=== PATIENT | female | born 1945 | race Caucasian/White ===

== ENCOUNTER → 2017-12-21 | Outpatient (CLI) | payer OTHER ==
[~2017-12-21] MED LIST: ASPIRIN325 PO; CELEBREX 200 M200 M1 PO; COLON HEALTH; HYDROCODON-ACE1 EAC7; MUCINEX TA600 MG/TA2; NOHOMEMEDICATIONS; NORVASC5 MG PO; PHENERGAN 25 MG25 M1 PO; THERA-M CAPLET1 EACH PO; TRAMADOL 50 MG50 MG PO; ZANTAC 150MG T150 MG PO
[2017-12-21 09:31] LABS: CREATININE 0.9 mg/dL (0.6-1.0)
== END ==
LOC: CAT 06:38
PROVIDERS: Specialist
DX: K57.92 Diverticulitis of intestine, part unspecified, without perforation or abscess without bleeding (principal); Z88.0 Allergy status to penicillin; Z88.2 Allergy status to sulfonamides

== ENCOUNTER 2020-06-23 13:28 | Emergency (ER) | payer OTHER ==
[~2020-06-23] VITALS: Ht 170.2 cm; Wt 61.7 kg
[2020-06-23 14:56] LABS: ABSOLUTE NEUTROPHILS 3.4 thou/uL (1.4-8.2); BASOPHILS 0.9 % (0.0-2.0); EOSINOPHILS 2.8 % (0.0-3.0); HEMATOCRIT 37.1 % (37.0-47.0); HEMOGLOBIN 12.3 gm/dL (12.0-15.0); LYMPHOCYTES 26.4 % (24.0-44.0); MCHC 33.1 g/dL (28.0-37.0); MCV 90.7 fL (80.0-100.0); MONOCYTES 10.6 % (1.0-8.0); PLATELET COUNT 277 thou/uL (150-400); POLYS 59.3 % (36.0-66.0); RBC 4.09 mil/uL (4.20-5.00); RDW 13.7 % (10.5-14.5); WBC 5.7 thou/uL (4.0-11.0)
[2020-06-23 15:13] LABS: ANION GAP 7 mmol/L (7-16); BUN 12 mg/dL (7-18); CALCIUM 9.7 mg/dL (8.5-10.1); CHLORIDE 104 mmol/L (98-107); CO2 31 mmol/L (21-32); CREATININE 0.8 mg/dL (0.6-1.0); GLUCOSE 97 mg/dL (74-106); POTASSIUM 3.8 mmol/L (3.5-5.1); SODIUM 142 mmol/L (136-145)
[2020-06-23 15:21] LABS: TROPONIN-I <0.06 ng/mL (<0.06)
--- NOTE | 2020-06-23 15:37 | EKG ---
[facility] [place] [address] ELECTROCARDIOGRAM REPORT Name: ZAMZAM FRANCIS Room #: REG [facility]#: [id number] Admission: 06/23/20 Attend Phys: Discharge: Date of : 43 Report #: [id number] THIS REPORT FOR: cc: Timothy Nichole MD, Steven E. MD Santiago, Patrick MD 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
[2020-06-23 17:25] VITALS: BP 135/64
== END 2020-06-23 17:26 | disposition home or self-care (01) ==
LOC: ER 13:28
PROVIDERS: Emergency Medicine
DX: U07.1 COVID-19 (principal); R06.09 Other forms of dyspnea; R00.2 Palpitations; Z90.710 Acquired absence of both cervix and uterus; Z79.899 Other long term (current) drug therapy; Z88.0 Allergy status to penicillin; Z88.5 Allergy status to narcotic agent; Z88.8 Allergy status to other drugs, medicaments and biological substances; Z88.2 Allergy status to sulfonamides

== ENCOUNTER 2020-06-26 22:48 | Inpatient (IN) | payer OTHER ==
[~2020-06-26] VITALS: Ht 170.2 cm; Wt 61.7 kg
--- NOTE | ~2020-06-26 | EMS ---
[address] [address] EMS Patient Care Report Name: ZAMZAM FRANCIS Room #: REG CHANI Orr#: [id number] Admission: 06/26/20 Attend Phys: Discharge: Date of : 43 Report #: [id number] THIS REPORT FOR: //name// Report Transmitted: 06/26/2020 22:35 EMS Care Summary [facility] Incident [id number] @ 06/26/2020 22:08 Incident Location [address] [place] [address] Patient ZAMZAM FRANCIS Female, 75 Years 1945 Patient Address [address] [place] [address] Patient History Diverticulitis,Anxiety,Palpitations, Patient Allergies Penicillin allergy, Patient Medications Aspirin, Pregnyl, Chief Complaint Rectal Bleeding Disposition Transported No Lights/Salol Dispatch Reason Abdominal Pain/Problems Transported To [facility] Medic 1 dispatched to the residence of a 75 year old female pt with a chief complaint of rectal bleeding. Upon arrival crew was greeted at door by pt. Pt presented with a patent airway and warm dry skin. Pt stated that she had 3 bloody stools in the last 30 minutes. Pt denied abd pain. Pt denied a hx of [address] [address] EMS Patient Care Report Name: ZAMZAM FRANCIS Room #: REG CHANI Orr#: [id number] Admission: 06/26/20 Attend Phys: Discharge: Date of : 43 Report #: [id number] rectal bleeding. Pt reported that she had tested positive for COVID 19 on 06/23/2020 but was not currently experiencing symptoms. Pt was placed on stretcher by crew and secured using straps. Pt stated that she was seen at the ED a few days prior for heart palpitations. Pt stated that she had initially been dx with COVID 19 over 30 days ago but retested on the and still tested positive. Pt stated that the stools she had were loose and bright red. Pt denied nausea and vomiting. Pt denied SOA or cough. Pt stated she felt generally weak. Pt was transported to [facility] without incident and care was transferred to ED staff. Initial Vitals @22:22P: 64,BP: 162/73,Pain: 0/10,GCS: 15,SpO2: 98, @22:30P: 86,BP: 163/73,Pain: 0/10,GCS: 15,SpO2: 99, Assessments @22:16MENTAL:Person Oriented,Time Oriented,Place Oriented,Event Oriented,SKIN:HEENT:Head/Face: No Abnormalities,LUNG SOUNDS:General: Diarrhea,ABDOMEN:General: Diarrhea,PELVIS//GI:No Abnormalities,EXTREMITIES:Capillary Refill: Right Upper: < 2 Sec,Left Arm: No Abnormalities,Right Arm: No Abnormalities,Left Leg: No Abnormalities,Right Leg: No Abnormalities,PULSE:Radial: 2+ Normal,NEURO:No Abnormalities,@22:33MENTAL:No Abnormalities,SKIN:No Abnormalities,HEENT:Head/Face: No Abnormalities,Eyes: No Abnormalities,Neck/Airway: No Abnormalities,LUNG SOUNDS:General: Other,ABDOMEN:General: Other,PELVIS//GI:No Abnormalities,EXTREMITIES:Left Arm: No Abnormalities,Right Arm: No Abnormalities,Left Leg: No Abnormalities,Right Leg: No Abnormalities,PULSE:NEURO:No Abnormalities, Impression Acute abdomen Procedures @22:16ALS AssessmentResponse: UnchangedSucceeded Timeline 22:05,Call Received 22:05,Psap Call 22:08,Dispatched 22:11,En Route 22:13,On Scene 22:15,At Patient 22:16,ALS Assessment,Response: UnchangedSucceeded, 22:22,BP: 162/73 M,PULSE: 64,RR: R,SPO2: 98 Ox,ETCO2: ,BG: ,PAIN: 0,GCS: 15, 22:23,Depart Scene 22:30,BP: 163/73 M,PULSE: 86,RR: R,SPO2: 99 Ox,ETCO2: ,BG: ,PAIN: 0,GCS: 15, 22:45,At Destination 22:58,Call Closed [facility] [address] [address] EMS Patient Care Report Name: ZAMZAM FRANCIS Room #: REG CHANI Orr#: [id number] Admission: 06/26/20 Attend Phys: Discharge: Date of : 43 Report #: [id number] Disclaimer v1.1 Copyright 2020 [employer] This EMS Care Summary contains data elements from the applicable legal record (which may be displayed differently). It is designed to provide pertinent information for the following purposes: continuity of care, clinical quality, and state data reporting. The complete legal record is available to ED staff and administrators of the receiving hospital in [employer] Patient Tracker. All data is provided "as is."
[2020-06-26 22:53] VITALS: BP 170/69
[2020-06-26 23:28] LABS: BASOPHILS 1.2 % (0.0-2.0); HEMATOCRIT 32.9 % (37.0-47.0); HEMOGLOBIN 10.8 gm/dL (12.0-15.0); MCH 29.9 pg (26.0-34.0); MCV 90.8 fL (80.0-100.0); PLATELET COUNT 260 thou/uL (150-400); POLYS 55.8 % (36.0-66.0); RBC 3.62 mil/uL (4.20-5.00); RDW 13.3 % (10.5-14.5); WBC 7.2 thou/uL (4.0-11.0)
[2020-06-26 23:35] LABS: ANION GAP 8 mmol/L (7-16); BUN 15 mg/dL (7-18); CALCIUM 8.8 mg/dL (8.5-10.1); CHLORIDE 104 mmol/L (98-107); CO2 28 mmol/L (21-32); GLUCOSE 107 mg/dL (74-106); POTASSIUM 3.9 mmol/L (3.5-5.1); SODIUM 140 mmol/L (136-145)
[2020-06-26 23:37] LABS: APTT 24.6 Seconds (24.5-32.8)
[2020-06-26 23:44] LABS: ALBUMIN 3.6 g/dL (3.4-5.0); SGOT 23 U/L (15-37); SGPT 21 U/L (30-65); TOTAL BILIRUBIN 0.3 mg/dL (0.2-1.0); TOTAL PROTEIN 6.9 g/dL (6.4-8.2); TROPONIN-I <0.06 ng/mL (<0.06)
[2020-06-27 01:49] VITALS: BP 125/68; BP 132/69; BP 133/67; BP 135/71; BP 141/85
[2020-06-27 08:19] VITALS: BP 121/65
[2020-06-27 13:19] VITALS: BP 144/88
[2020-06-27 13:44] LABS: HEMATOCRIT 30.3 % (37.0-47.0); HEMOGLOBIN 10.1 gm/dL (12.0-15.0)
--- NOTE | 2020-06-27 14:31 | NUR ---
PT STATES THEY HAD TWO BOWEL MOVEMENTS WITH BLOOD THAT WAS LESS THAN THE PREVIOUS NIGHT.
[2020-06-27 15:11] VITALS: BP 168/82
[2020-06-27 16:16] LABS: HEMATOCRIT 26.8 % (37.0-47.0); HEMOGLOBIN 8.8 gm/dL (12.0-15.0); MCH 29.6 pg (26.0-34.0); MCHC 32.9 g/dL (28.0-37.0); RBC 2.98 mil/uL (4.20-5.00); RDW 13.7 % (10.5-14.5); WBC 5.8 thou/uL (4.0-11.0)
[2020-06-27 18:44] LABS: HEMATOCRIT 26.1 % (37.0-47.0); HEMOGLOBIN 8.7 gm/dL (12.0-15.0)
[2020-06-27 19:18] VITALS: BP 129/61
[2020-06-28 04:40] LABS: HEMATOCRIT 25.5 % (37.0-47.0); HEMOGLOBIN 8.4 gm/dL (12.0-15.0); MCHC 32.8 g/dL (28.0-37.0); MCV 91.5 fL (80.0-100.0); RBC 2.79 mil/uL (4.20-5.00); RDW 13.6 % (10.5-14.5); WBC 5.8 thou/uL (4.0-11.0)
[2020-06-28 04:56] LABS: CREATININE 0.7 mg/dL (0.6-1.0); MAGNESIUM 1.7 mg/dL (1.8-2.4); POTASSIUM 3.7 mmol/L (3.5-5.1)
[2020-06-28 07:23] VITALS: BP 123/69
--- NOTE | 2020-06-28 08:28 | NUR ---
DAUGHTERNOE CALLED: [phone] DAUGHTER STATED PT HAS BEEN HAVING INCREASING MEMORY ISSUES. PER DAUGHTER, PT DOES NOT TAKE HOME MEDS APPROPRIATELY, IF AT ALL. PT HAS BEEN PUSHING AWAY PEOPLE CLOSE TO HER, AND CONFUSING DETAILS OF HER MEDICAL HX AND EVENTS WITH HER FAMILY. DAUGHTER WAS DPOA BUT AFTER PT COMPLETED QUARANTINE FOR COVID-19 DAUGHTER GOT A LETTER IN THE MAIL INFORMING HER THAT THE PT HAD RETURNED DPOA TO SELF, R/T DAUGHTER HAVING BEEN CAUTIOUS DURING PT COVID DX AND NOT COMING TO SEE THE PT IN PERSON AT ALL, DESPITE CHECKING ON HER VIA PHONE. DAUGHTER IS CONCERNED THERE IS A DEMENTIA COMPONENT TO THIS BEHAVIOR BUT PT HAS NOT BEEN ASSESSED OR DX. WILL MAKE INPT HOSPITALIST AWARE OF BEHAVIORAL CHANGES AND NEED FOR POTENTIAL PSYCH ASSESSMENT CONSULT.
--- NOTE | 2020-06-28 10:06 | P ---
[facility] [place] [place] [address] PROCEDURE REPORT Name: ZAMZAM FRANCIS Room #: 170-14 ADM IN M.R.#: [id number] Admission: 06/27/20 Attend Phys: Jorge Norris MD Discharge: Date of : 43 Report #: [id number] THIS REPORT FOR: cc: Timothy Nichole MD,Fortino Dunbar MD, MD ~ CC: Jorge Nichole DATE OF SERVICE: 06/27/2020 PROCEDURE PERFORMED: Colonoscopy with bleeding control. HISTORY OF PRESENT ILLNESS: The patient is a 75-year-old female, began having bright red blood per rectum last night. This was not associated with abdominal pain. No diarrhea or constipation recently. She has a history of diverticulosis. She has had a drop in her hemoglobin. She has been hypotensive throughout the day at times. She has received 1 unit of packed cells. Her most recent hemoglobin is 8.8 at this time. She underwent a nuclear medicine bleeding scan that showed positive uptake immediately of what appears to be the hepatic flexure region, but maybe right colon or cecum as well. Plan is for emergent colonoscopy. DESCRIPTION OF PROCEDURE: The risks and benefits of the procedure were explained to the patient, those risks including but not limited to bleeding, perforation and the risk of sedation. She understood these risks and gave informed consent. Sedation was given using propofol per anesthesia. Next, a digital rectal exam showed old blood, but otherwise normal. Next, using a standard Olympus colonoscope, the scope was placed in the patient's anus and advanced under direct vision into the transverse colon area. There was blood noted throughout the entire left colon with stool in areas. The prep was fairly poor in these areas. There was old blood with bright red blood. What appeared to be initially in the transverse colon, there was a transition zone where no further blood was noted. I then spent approximately 10 minutes washing and aspirating in this area, thinking the bleeding site was likely near the transition zone. I did not see any obvious signs of bleeding. Again, there was a lot of old blood. I then advanced the scope further and at the hepatic flexure area, there was a single diverticulum with a fresh clot. It was not actively bleeding but again, there was a fresh clot right at the spot and there was no other blood around this area. I washed the clot off and in the diverticulum, there was an ulceration. I suspect this is the source of bleeding, which coincides with a nuclear medicine scan as well. I treated it with 2 mL of epinephrine and a single endoclip was placed. There was no evidence of bleeding after treatment. The scope was then advanced on into the cecum. No evidence of blood in the cecum where the ileocecal valve. [facility] [address] [place] [address] PROCEDURE REPORT Name: ZAMZAM FRANCIS Room #: 170-14 ADM IN M.R.#: [id number] Admission: 06/27/20 Attend Phys: Jorge Norris MD Discharge: Date of : 43 Report #: [id number] amount of old blood was noted in the ascending colon, but no significant amount. The patient has diverticulosis throughout her entire colon. At this point, the scope was then withdrawn and the procedure terminated. The patient tolerated the procedure well. IMPRESSION: 1. Pandiverticulosis. 2. Single diverticulum near the hepatic flexure area with a fresh clot, likely source of recent gastrointestinal bleed, treated with epinephrine and endoclip placement. 3. A large amount of old blood and clots throughout the transverse, descending, and sigmoid colon with multiple diverticulii. RECOMMENDATIONS: 1. Observe the patient post-procedure. 2. Continue to monitor hemoglobin closely. 3. We will start clear liquid diet at this time. Thank you for allowing me to participate in her care. <ELECTRONICALLY SIGNED> By: Fortino Valerio MD 06/28/20 1006 [id number] Fortino Valerio MD /nt
--- NOTE | 2020-06-28 10:06 | HC ---
[facility] [place] [address] CONSULTATION Name: ZAMZAM FRANCIS Room #: 170-14 ADM IN M.R.#: [id number] Admission: 06/27/20 Attend Phys: Jorge Norris MD Discharge: Date of : 43 Report #: [id number] THIS REPORT FOR: cc: Timothy Nichole MD,Fortino Dunbar MD, MD ~ CC: Dr. Dionisio Nichole DATE OF SERVICE: 06/27/2020 HISTORY OF PRESENT ILLNESS: The patient is a 75-year-old female who began having hematochezia at home yesterday evening. No previous history of GI bleed. Denies any significant abdominal pain. No nausea, vomiting. No hematemesis. She does take an aspirin on a daily basis. No recent history of diarrhea. On admission to the Emergency Room, initial hemoglobin was 10.8. She has had several episodes of passing bright red blood with clots throughout the day. She has a history of COVID positive approximately 1 month ago. She then underwent a nuclear bleeding scan this afternoon. It was positive from the initial images and what appears to be the right colon. There is radiotracer activity continued with accumulation in the transverse colon and descending colon consistent with an active GI bleed. The patient was hypotensive at this time. She was transferred back to the Emergency Room and given a bolus of normal saline. Her pulse remains in the 80s at this time. Again, still denies any abdominal pain. The patient has a known history of diverticulosis. Apparently had a colonoscopy several years ago. I do not have a copy of this report. PAST MEDICAL HISTORY: Diverticulosis, hypertension, gastroesophageal reflux disease, history of COVID being positive approximately 1 month ago. PAST SURGICAL HISTORY: Previous appendectomy, hysterectomy, left hip replacement. REVIEW OF SYSTEMS: As per HPI. SOCIAL HISTORY: Denies any tobacco use. She reports occasional alcohol use. FAMILY HISTORY: Negative for colon cancer. ALLERGIES: HISTUSSIN HC, MELOXICAM, PENICILLIN, PHENYLEPHRINE, SULFA. MEDICATIONS: On admission Zantac, amlodipine. PHYSICAL EXAMINATION: VITAL SIGNS: Temperature 99.0, pulse was in the 70s, blood pressure again [facility] [address] [place] [address] CONSULTATION Name: ZAMZAM FRANCIS Room #: 170-14 ADM IN .R.#: [id number] Admission: 06/27/20 Attend Phys: Jorge Norris MD Discharge: Date of : 43 Report #: [id number] dropped in the Emergency Room was 78/56, respiratory rate 19. GENERAL: She appears somewhat fatigued, although she remains alert and oriented at this time. HEENT: Sclerae nonicteric. Oropharynx clear. NECK: Supple, without lymphadenopathy. CARDIOVASCULAR: Regular rate and rhythm. CHEST: Clear to auscultation bilaterally. ABDOMEN: Soft. She is nontender, nondistended. Positive bowel sounds. EXTREMITIES: No cyanosis, clubbing or edema. Of note, there was bright red blood noted in her Depends with clots. LABORATORY DATA: Sodium 140, potassium 3.9, chloride 104, bicarbonate 28, BUN 15, creatinine 1.0, AST 23, total bilirubin 0.3, alkaline phosphatase 109, ALT is 21, albumin 3.6. INR 1.0. WBC is 5.8. Most recent hemoglobin is 8.8 and platelet count 220. ASSESSMENT AND PLAN: Acute gastrointestinal bleed. Nuclear scan positive in the right colon, possible cecum, possible hepatic flexure area. The patient has been intermittently hypotensive. She has already received 1 unit of packed cells, continues to drop her hemoglobin. I would recommend an emergent colonoscopy at this point for further evaluation. The patient understands and agrees with this plan. We will make further recommendations after endoscopy. Thank you for allowing me to participate in her care. <ELECTRONICALLY SIGNED> By: Fortino Valerio MD 06/28/20 1006 1646 00 Fortino Valerio MD /nt
[2020-06-28 18:08] LABS: ABSOLUTE NEUTROPHILS 3.7 thou/uL (1.4-8.2); BASOPHILS 1.1 % (0.0-2.0); EOSINOPHILS 1.8 % (0.0-3.0); HEMATOCRIT 25.3 % (37.0-47.0); HEMOGLOBIN 8.4 gm/dL (12.0-15.0); LYMPHOCYTES 24.5 % (24.0-44.0); MCH 30.1 pg (26.0-34.0); MCHC 33.1 g/dL (28.0-37.0); MCV 90.9 fL (80.0-100.0); MONOCYTES 10.7 % (1.0-8.0); POLYS 61.9 % (36.0-66.0); RBC 2.78 mil/uL (4.20-5.00); RDW 13.7 % (10.5-14.5); WBC 5.9 thou/uL (4.0-11.0)
[2020-06-28 18:28] LABS: LARGE PLATELETS OCCASIONAL; PLATELET COUNT 196 thou/uL (150-400)
[2020-06-29 05:21] LABS: ABSOLUTE NEUTROPHILS 3.2 thou/uL (1.4-8.2); BASOPHILS 0.8 % (0.0-2.0); EOSINOPHILS 2.6 % (0.0-3.0); HEMATOCRIT 26.5 % (37.0-47.0); HEMOGLOBIN 8.9 gm/dL (12.0-15.0); LYMPHOCYTES 33.7 % (24.0-44.0); MCH 30.5 pg (26.0-34.0); MCHC 33.5 g/dL (28.0-37.0); MCV 90.9 fL (80.0-100.0); MONOCYTES 9.7 % (1.0-8.0); PLATELET COUNT 209 thou/uL (150-400); POLYS 53.2 % (36.0-66.0); RBC 2.92 mil/uL (4.20-5.00); RDW 13.6 % (10.5-14.5); WBC 6.1 thou/uL (4.0-11.0)
[2020-06-29 06:05] LABS: CALCIUM 8.6 mg/dL (8.5-10.1); CREATININE 0.8 mg/dL (0.6-1.0); MAGNESIUM 1.9 mg/dL (1.8-2.4); PHOSPHORUS 3.8 mg/dL (2.5-4.9); POTASSIUM 3.4 mmol/L (3.5-5.1)
--- NOTE | 2020-06-29 07:27 | EKG ---
[facility] [address] [facility] [place] [address] ELECTROCARDIOGRAM REPORT Name: ZAMZAM FRANCIS Room #: 170-14 ADM IN M.R.#: [id number] Admission: 06/27/20 Attend Phys: Alejandra Roach MD Discharge: Date of : 43 Report #: [id number] THIS REPORT FOR: cc: Timothy Nichole MD, Steven E. 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
[2020-06-29] MEDS ORDERED: PROTONIX 20 MG20 M1 PO (15:28)
[2020-06-29 17:24] VITALS: BP 147/62
[2020-06-29 18:30] VITALS: BP 134/64
[2020-06-30] MEDS ORDERED: ASA81BEC PO (16:35)
== END 2020-06-29 18:30 | disposition home or self-care (01) | DRG 377 ==
LOC: ER 22:48 → EROBS 06-27 00:57
PROVIDERS: Nurse Practitioner Family; Student in an Organized Health Care Education/Training Program; ADMIT Internal Medicine; ATTEND Internal Medicine
PROC: 0W3P8ZZ Control Bleeding in Gastrointestinal Tract, Via Natural or Artificial Opening Endoscopic (ICD-10-PCS; principal; 2020-06-27)
DX: K57.91 Diverticulosis of intestine, part unspecified, without perforation or abscess with bleeding (principal); U07.1 COVID-19; I10 Essential (primary) hypertension; K21.9 Gastro-esophageal reflux disease without esophagitis; Z96.642 Presence of left artificial hip joint; Z90.710 Acquired absence of both cervix and uterus; Z79.82 Long term (current) use of aspirin; Z88.5 Allergy status to narcotic agent; Z88.0 Allergy status to penicillin; Z90.89 Acquired absence of other organs; Z88.2 Allergy status to sulfonamides; Z91.09 Other allergy status, other than to drugs and biological substances; Z79.899 Other long term (current) drug therapy
CPT/HCPCS: 62110; 62900

== ENCOUNTER 2020-06-30 16:21 | Emergency (ER) | payer OTHER ==
[~2020-06-30] VITALS: Ht 170.2 cm; Wt 61.7 kg
[~2020-06-30 16:21] MED LIST changes: +PROTONIX 20 MG20 M1 PO
[2020-06-30] MEDS ORDERED: ASA81BEC PO (16:35)
[2020-06-30 17:10] LABS: ABSOLUTE NEUTROPHILS 5.6 thou/uL (1.4-8.2); BASOPHILS 0.9 % (0.0-2.0); EOSINOPHILS 0.9 % (0.0-3.0); HEMATOCRIT 26.6 % (37.0-47.0); HEMOGLOBIN 8.9 gm/dL (12.0-15.0); LYMPHOCYTES 15.2 % (24.0-44.0); MCH 30.1 pg (26.0-34.0); MCHC 33.5 g/dL (28.0-37.0); MCV 89.9 fL (80.0-100.0); MONOCYTES 10.9 % (1.0-8.0); PLATELET COUNT 238 thou/uL (150-400); POLYS 72.1 % (36.0-66.0); RBC 2.96 mil/uL (4.20-5.00); RDW 13.7 % (10.5-14.5); WBC 7.8 thou/uL (4.0-11.0)
[2020-06-30 17:33] LABS: CALCIUM 8.9 mg/dL (8.5-10.1); POTASSIUM 3.4 mmol/L (3.5-5.1)
[2020-06-30 18:50] VITALS: BP 115/63
== END 2020-06-30 18:57 | disposition home or self-care (01) ==
LOC: ER 16:21
PROVIDERS: Emergency Medicine
DX: D64.9 Anemia, unspecified (principal); Z90.710 Acquired absence of both cervix and uterus; Z88.2 Allergy status to sulfonamides; Z88.8 Allergy status to other drugs, medicaments and biological substances; Z88.0 Allergy status to penicillin; Z79.82 Long term (current) use of aspirin